=== PATIENT | female | born 1960 | race Caucasian/White ===

== ENCOUNTER → 2017-04-27 13:57 | Outpatient (CLI) | payer MEDICARE, MEDICAID, SELFPAY ==
[2017-04-27 16:59] LABS: AST(SGOT) 18 U/L (15-37); Alanine Aminotransfer ALT/SGPT 21 U/L (13-56); Albumin, Serum 3.3 g/dL (3.2-5.0); Alkaline Phosphatase 203 U/L (45-117); Anion Gap 10 (5-15); BUN 14 mg/dL (7-18); BUN/Creat Ratio 15.8 RATIO (10-20); Calcium,Total 8.8 mg/dL (8.5-10.1); Chloride 105 mmol/L (98-107); Creatinine, Serum 0.88 mg/dL (0.55-1.02); EST Glomerular Filtration Rate 70 mL/min (>60); Est Glom Filt Rate - Afr Amer 85 mL/min (>60); Free T3 1.5 pg/mL (2.18-3.98); Globulin 3.4 g/dL (2.2-4.2); Glucose 82 mg/dL (74-106); Potassium 3.9 mmol/L (3.5-5.1); Protein, Total 6.7 g/dL (6.4-8.2); Sodium Level 139 mmol/L (136-145); T4 Free Direct 0.73 ng/dL (0.76-1.46); Thyroid Stim Hormone (TSH) 0.36 uIU/mL (0.358-3.74)
== END ==
PROVIDERS: Family Provider Family Medicine; PCP Family Medicine; Visit Provider Nurse Practitioner
DX: E05.90 Thyrotoxicosis, unspecified without thyrotoxic crisis or storm (principal); R94.6 Abnormal results of thyroid function studies
CPT/HCPCS: 36415; 80053; 84439; 84443; 84481

== ENCOUNTER → 2017-06-07 15:36 | Outpatient (CLI) | payer MEDICARE, MEDICAID, SELFPAY ==
[2017-06-07 16:33] LABS: Absolute Neutrophil Count 3.5 X10^3/uL (2.0-7.7); Basophil# 0.04 X10^3/uL; Basophil% 0.7 % (0-1); Eosinophil# 0.11 X10^3/uL; Eosinophils% 1.8 % (0-5); Hematocrit 35.8 % (37-47); Hemoglobin 11.4 g/dl (12.0-15.0); Lymphocyte % 28.4 % (19-41); Mean Corp Hgb Conc 31.8 g/gl (32-36); Mean Corpuscular Hgb 27.3 pg (27.0-32.0); Mean Corpuscular Volume 85.6 fL (81-99); Mean Platelet Vol. 10.7 fl (6.2-12.0); Monocyte# 0.65 X10^3/uL; Monocyte% 10.9 % (0-10); Neutrophil # 3.46 X10^3/uL (2.7-7.7); Neutrophil % 57.9 % (47-70); Platelet Count 311 K/mm3 (150-450); RBC Distribution Width CV 14.9 % (11.6-14.6); RBC Distribution Width SD 45.6 fl (35.1-43.9); Red Blood Count 4.18 M/mm3 (4.2-5.4)
[2017-06-07 16:34] LABS: POSITIVE COUNT NO; POSITIVE DIFFERENTIAL NO; POSITIVE MORPHOLOGY NO
[2017-06-07 17:37] LABS: ALB/GLOB Ratio 1.1 RATIO (0.9-2.4); AST(SGOT) 20 U/L (15-37); Alanine Aminotransfer ALT/SGPT 23 U/L (13-56); Albumin, Serum 3.6 g/dL (3.2-5.0); Alkaline Phosphatase 198 U/L (45-117); Anion Gap 10 (5-15); BUN 20 mg/dL (7-18); BUN/Creat Ratio 17.5 RATIO (10-20); Calcium,Total 8.9 mg/dL (8.5-10.1); Chloride 106 mmol/L (98-107); Creatinine, Serum 1.14 mg/dL (0.55-1.02); EST Glomerular Filtration Rate 52 mL/min (>60); Est Glom Filt Rate - Afr Amer 63 mL/min (>60); Free T3 1.9 pg/mL (2.18-3.98); Globulin 3.2 g/dL (2.2-4.2); Glucose 92 mg/dL (74-106); Potassium 4.2 mmol/L (3.5-5.1); Protein, Total 6.8 g/dL (6.4-8.2); Sodium Level 140 mmol/L (136-145); T4 Free Direct 0.54 ng/dL (0.76-1.46); Total Bilirubin < 0.10 mg/dL (0.20-1.00)
== END ==
PROVIDERS: Family Provider Family Medicine; PCP Family Medicine; Visit Provider Nurse Practitioner
DX: E07.9 Disorder of thyroid, unspecified (principal); E05.90 Thyrotoxicosis, unspecified without thyrotoxic crisis or storm
CPT/HCPCS: 36415; 80053; 84439; 84443; 84481; 85025

== ENCOUNTER → 2017-11-02 15:19 | Outpatient (CLI) | payer MEDICARE, MEDICAID, SELFPAY ==
[2017-11-02 15:58] LABS: Absolute Lymphocyte Count 2.13 X10^3/ul (0.83-4.51); Absolute Neutrophil Count 3.9 X10^3/uL (2.0-7.7); Basophil# 0.11 X10^3/uL; Basophil% 1.5 % (0-1); Eosinophil# 0.22 X10^3/uL; Hematocrit 35.8 % (37-47); Hemoglobin 11.5 g/dl (12.0-15.0); Lymphocyte # 2.13 X10^3/ul (4.0); Lymphocyte % 29.4 % (19-41); Mean Corp Hgb Conc 32.1 g/gl (32-36); Mean Corpuscular Hgb 27.3 pg (27.0-32.0); Mean Corpuscular Volume 84.8 fL (81-99); Mean Platelet Vol. 10.2 fl (6.2-12.0); Monocyte# 0.82 X10^3/uL; Monocyte% 11.3 % (0-10); Neutrophil # 3.91 X10^3/uL (2.7-7.7); Platelet Count 304 K/mm3 (150-450); RBC Distribution Width CV 15.6 % (11.6-14.6); RBC Distribution Width SD 47.6 fl (35.1-43.9); Red Blood Count 4.22 M/mm3 (4.2-5.4); White Blood Count 7.3 K/mm3 (4.4-11.0)
[2017-11-02 16:00] LABS: POSITIVE COUNT NO; POSITIVE DIFFERENTIAL NO; POSITIVE MORPHOLOGY NO
[2017-11-02 16:10] LABS: ALB/GLOB Ratio 1.1 RATIO (0.9-2.4); AST(SGOT) 19 U/L (15-37); Alanine Aminotransfer ALT/SGPT 27 U/L (13-56); Albumin, Serum 3.5 g/dL (3.2-5.0); Alkaline Phosphatase 185 U/L (45-117); Anion Gap 9 (5-15); BUN 21 mg/dL (7-18); BUN/Creat Ratio 19.4 RATIO (10-20); Calcium,Total 8.3 mg/dL (8.5-10.1); Chloride 106 mmol/L (98-107); Creatinine, Serum 1.08 mg/dL (0.55-1.02); EST Glomerular Filtration Rate 56 mL/min (>60); Est Glom Filt Rate - Afr Amer 67 mL/min (>60); Free T3 1.8 pg/mL (2.18-3.98); Globulin 3.3 g/dL (2.2-4.2); Glucose 89 mg/dL (74-106); Protein, Total 6.8 g/dL (6.4-8.2); Sodium Level 138 mmol/L (136-145); T4 Free Direct 0.82 ng/dL (0.76-1.46); Thyroid Stim Hormone (TSH) 3.64 uIU/mL (0.358-3.74)
== END ==
PROVIDERS: Family Provider Family Medicine; PCP Family Medicine; Visit Provider Nurse Practitioner
DX: E05.90 Thyrotoxicosis, unspecified without thyrotoxic crisis or storm (principal); R94.6 Abnormal results of thyroid function studies
CPT/HCPCS: 36415; 80053; 84439; 84443; 84481; 85025

== ENCOUNTER → 2018-01-29 13:57 | Outpatient (CLI) | payer MEDICARE, MEDICAID, SELFPAY ==
[2018-01-29 13:07] VITALS: BMI 30.5
[2018-01-29 15:31] LABS: T4 Free Direct 0.89 ng/dL (0.76-1.46); Thyroid Stim Hormone (TSH) 1.73 uIU/mL (0.358-3.74)
== END ==
PROVIDERS: Family Provider Family Medicine; PCP Family Medicine; Referring Provider Nurse Practitioner; Visit Provider Nurse Practitioner
DX: E05.90 Thyrotoxicosis, unspecified without thyrotoxic crisis or storm (principal); R94.6 Abnormal results of thyroid function studies
CPT/HCPCS: 36415; 84439; 84443; 84481